=== PATIENT | male | born 1980 | race Two or more races ===

== ENCOUNTER 2018-12-20 10:52 | Emergency (ER) | payer SELFPAY ==
[~2018-12-20] VITALS: Ht 177.8 cm; Wt 69.4 kg
--- NOTE | 2018-12-20 10:52 | NUR ---
SEEN AND EXAMINED BY DR. OSBORNE.
--- NOTE | 2018-12-20 10:52 | NUR ---
IV LINE ESTABLISHED, BLOOD DRAWNED AND SENT TO LAB.
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
[2018-12-20] MEDS ORDERED: IV NS 0.9% 250 ML IV ONE (10:55)
[2018-12-20] MEDS ORDERED: IOHEXOL-350 100 ML VIAL IV ONE (10:55)
[2018-12-20] MEDS ORDERED: CT SWABBABLE VALVE TRANS SET 1 EA INFUS.SET MC ONE (10:55)
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
[2018-12-20] MEDS: IV NS 0.9% 1,000 ML BAG IV ONE (11:00)
[2018-12-20 11:05] LABS: BASOPHILS # (AUTO) 0.2 /CMM (0.0-0.2); BASOPHILS % (AUTO) 0.6 % (0.0-2.0); HEMATOCRIT 39 % (39-51); HEMOGLOBIN 12.9 g/dL (13.5-17.5); LYMPHOCYTES # (AUTO) 1.4 /CMM (0.8-4.8); LYMPHOCYTES % (AUTO) 5.2 % (20.0-44.0); MEAN CORPUSCULAR HGB CONC 33 g/dl (31.0-36.0); MEAN CORPUSCULAR VOLUME 92 fL (80-96); MONOCYTES % (AUTO) 3.7 % (2.0-12.0); NEUTROPHILS # (AUTO) 24.8 /CMM (1.8-8.9); NEUTROPHILS % (AUTO) 90.5 % (43.0-81.0); PLATELET COUNT (AUTO) 295 /CMM (150-450); WHITE BLOOD COUNT (AUTO) 27.5 K/uL (4.3-11.0)
--- NOTE | 2018-12-20 11:15 | NUR ---
BACK FROM CT
[2018-12-20 11:17] LABS: CARBON DIOXIDE 26 mmol/L (21-32); CHLORIDE 103 mmol/L (98-107); CREATININE 1.1 mg/dL (0.6-1.3); GLUCOSE 152 mg/dL (74-106); POTASSIUM 4.1 mmol/L (3.5-5.1); SODIUM SERUM 140 mmol/L (136-145); UREA NITROGEN, BLOOD 13 mg/dL (7-18)
[2018-12-20 11:20] LABS: CALCIUM, SERUM 9.2 mg/dL (8.5-10.1)
[2018-12-20 11:22] LABS: ALANINE AMINOTRANSFERASE 30 U/L (12-78); ALKALINE PHOSPHATASE 43 U/L (46-116); ASPARTATE AMINOTRANSFERASE 18 U/L (15-37); BILIRUBIN,DIRECT 0.2 mg/dL (0.0-0.2); BILIRUBIN,TOTAL 1.6 mg/dL (0.2-1.0); TOTAL PROTEIN, SERUM 7.1 g/dL (6.4-8.2)
[2018-12-20 11:23] LABS: ACETAMINOPHEN 0 ug/ml (10-30); ALCOHOL, BLOOD < 3 mg/dL (0-0); SALICYLATE < 2.8 mg/dL (2.8-20.0)
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
--- NOTE | 2018-12-20 11:50 | NUR ---
CALLED DR MIRANDA, LEFT MESSAGE
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
--- NOTE | 2018-12-20 11:53 | NUR ---
DR MIRANDA CALLED BACK
--- NOTE | 2018-12-20 12:04 | NUR ---
URINE COLLECTED AND SENT TO LAB
[2018-12-20 12:16] LABS: APPEARANCE,URINE Clear (CLEAR); BILIRUBIN,URINE Negative (NEGATIVE); BLOOD, URINE Large Ery/uL (NEGATIVE); COLOR,URINE Yellow (YELLOW); KETONES,URINE 40 (NEGATIVE); LEUKOCYTE ESTERASE ,URINE Negative (NEGATIVE); NITRITE, URINE Negative (NEGATIVE); PH,URINE 5.5 (5.0-8.0); PROTEIN,URINE Negative (NEGATIVE); UGLUCOSE Negative (NEGATIVE); UROBILINOGEN,URINE 0.2 EU/dL (0.2)
[2018-12-20] MEDS ORDERED: PIPERACILLIN /TAZOBACTAM 3.375 G VIAL IV ONE (12:16)
[2018-12-20] MEDS ORDERED: TDAP [DIPH/PERTUSSIS/TET] 0.5 ML VIAL IM ONE (12:16)
[2018-12-20 12:18] LABS: RBC,URINE 21-50 /HPF (0-2); SQUAMOUS EPITHELIAL CELL,UR Rare /HPF (None Seen); WBC,URINE 0-2 /HPF (0-3)
[2018-12-20 12:19] LABS: BACTERIA,URINE Rare /HPF (None Seen)
--- NOTE | 2018-12-20 12:21 | NUR ---
CALLED [facility], ETA 1330, TRIP #[phone]
--- NOTE | 2018-12-20 12:22 | NUR ---
PT ACCEPTED AT [facility] BY DR AUSTIN.
[2018-12-20] MEDS: PIPERACILLIN /TAZOBACTAM 3.375 G in IV D5W 50 ML IV ONE (12:24)
[2018-12-20] MEDS: TDAP [DIPH/PERTUSSIS/TET] 0.5 ML VIAL IM ONE (12:24)
[2018-12-20 12:34] VITALS: BP 119/55
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
--- NOTE | 2018-12-20 12:37 | NUR ---
CALLED AM- 90 MIN ETA
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
--- NOTE | 2018-12-20 12:44 | NUR ---
ADONIS PINA AT BEDSIDE TO TRANSPORT PT TO [facility]
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
== END 2018-12-20 12:46 | disposition short-term general hospital (02) ==
LOC: ER 10:54
DX: S61.511A Laceration without foreign body of right wrist, initial encounter (principal); S11.91XA Laceration without foreign body of unspecified part of neck, initial encounter; S31.119A Laceration without foreign body of abdominal wall, unspecified quadrant without penetration into peritoneal cavity, initial encounter; D72.829 Elevated white blood cell count, unspecified; F12.10 Cannabis abuse, uncomplicated; X58.XXXA Exposure to other specified factors, initial encounter; Y93.89 Activity, other specified; Y92.89 Other specified places as the place of occurrence of the external cause; Y99.8 Other external cause status
CPT/HCPCS: 36415; 70491; 71045; 71260; 74177; 80048; 80076; 80305; 80307; 80329; 81001; 84484; 85025; 90471; 90715; 96365; 99291; A6403; G0480; J2543; J7030; J7050; Q9967; 81000-TC; J7060